=== PATIENT | female | born 1970 | race Caucasian/White ===

== ENCOUNTER 2018-03-02 08:21 | Observation (INO) ==
[2018-03-02] MEDS ORDERED: Chlorhexidine Gluconate 2% 1 Pack (2 Cloths) TOPICAL ONE (09:01)
[2018-03-02] MEDS ORDERED: Metoprolol Tartrate 25 MG Tablet PO ONE (09:01)
[2018-03-02] MEDS ORDERED: ceFAZolin 2 GM Premix Inj 2 GM/50 ML PIGGYBACK IV.SIG ONE (09:13)
[2018-03-02] MEDS ORDERED: ceFAZolin 2 GM/NS 100 ML IV IV.SIG SCH ×2 (10:00)
[2018-03-02] MEDS ORDERED: Sodium Chlor 0.9% Inj 500 ML IV.SIG SCH (10:00)
[2018-03-02] MEDS ORDERED: Morphine Sulfate Inj 2 MG/ML Vial IV.PUSH PRN ×2 (12:13→12:52)
[2018-03-02] MEDS ORDERED: Gelatin 12 MM/7 MM Topical Foam I-ARTERIAL ONE (12:21)
[2018-03-02] MEDS ORDERED: fentaNYL Citrate Inj 100 MCG/2 ML Ampul ONE (12:24)
[2018-03-02] MEDS ORDERED: fentaNYL Citrate Inj 250 MCG/5 ML Ampul ONE (12:54)
[2018-03-02 13:08] LABS: Baso # (Auto) 0.1 th/mm3 (0.0-0.2); Baso % (Auto) 0.5 % (0.0-2.0); Eos % (Auto) 0.3 % (0.0-4.0); Hematocrit 35.4 % (35.0-46.0); Hemoglobin 12.2 gm/dL (11.6-15.3); Lymph # (Auto) 0.7 th/mm3 (1.0-4.8); Lymph % (Auto) 5.4 % (9.0-44.0); Mean Corpuscular HGB Conc 34.3 % (32.0-36.0); Mean Corpuscular Hemoglobin 31.9 pg (27.0-34.0); Mean Corpuscular Volume 92.9 fL (80.0-100.0); Mean Platelet Volume 7.7 fL (7.0-11.0); Mono # (Auto) 0.3 th/mm3 (0.0-0.9); Mono % (Auto) 2.3 % (0.0-8.0); Neut # (Auto) 11.5 th/mm3 (1.8-7.7); Neut % (Auto) 91.5 % (16.0-70.0); Platelet Count 283 th/mm3 (150-450); Red Blood Count 3.82 mil/mm3 (4.00-5.30); Red Cell Distribution Width 13.3 % (11.6-17.2); White Blood Count 12.6 th/mm3 (4.0-11.0)
[2018-03-02 13:28] LABS: Calcium 8.1 mg/dL (8.5-10.1); Carbon Dioxide 24.7 meq/L (21.0-32.0)
[2018-03-02 13:29] LABS: Potassium 5.7 meq/L (3.5-5.1)
--- NOTE | 2018-03-02 14:29 | MP ---
cc: Glenn Genao MD DATE OF OPERATION: 03/01/2018 DATE OF PROCEDURE: 03/02/2018. PREOPERATIVE DIAGNOSIS: The patient with acute menometrorrhagia with submucous myoma, uterine fibroids and anemia. PROCEDURE PERFORMED: Exam under anesthesia, operative hysteroscopy, MyoSure myometrial resection, dilatation and curettage. POSTOPERATIVE DIAGNOSES: The patient with acute menometrorrhagia with submucous myoma, uterine fibroids and anemia. SURGEON: Glenn Genao MD ANESTHESIA: General with LMA. ESTIMATED BLOOD LOSS: Greater than 100 mL OPERATIVE FINDINGS: The patient had a 3 cm posterior submucous myoma with enlarged uterine cavity; vascular pedicle of the myoma was identified. No other abnormality was evident within the endometrial cavity. INDICATIONS FOR PROCEDURE: The patient with known history of uterine fibroids; had been doing well until recently had an episode of heavy menstrual bleeding that was off schedule from her use of her control pills. A recent ultrasound revealed an approximately 3 cm submucous myoma. Patient was elected for hysteroscopy with MyoSure and endometrial ablation. The patient received Ancef 2 grams prophylactically. PROCEDURE DESCRIPTION: The patient was taken to the operating room in stable condition and underwent general anesthesia with LMA placement. She was carefully positioned in dorsal lithotomy position using candy cane stirrups. She had sequentials placed on lower extremities for DVT prophylaxis. She was prepped and draped. Timeout was conducted and agreed by all present in the room. The examination of the patient's anatomy. The patient had a small midline cervix that was flush with the vaginal vault. There was no focal lesion noted. The cervix was secured with a single-tooth tenaculum and the uterine sound was placed gently in a slightly mid position to about 10 cm. The cervix was then dilated and a 5 mm hysteroscope was used to examine the cavity and the cavity revealed the findings as stated above; a midline submucous myoma with its base protruding from the posterior wall of the uterus. No other abnormality was evident. The MyoSure device was set up and initiation of resection resulted in part resection of the myoma, which was complicated by excessive blood loss and excessive bleeding, which obscured accurate visualization of the endometrial cavity. Completion of the MyoSure was terminated due to inability to visualize. Attempt at use of the NovaSure device was used to control the bleeding. The NovaSure was not successful in its utilization, due to cavity assessment would not complete its cycle. Re-examination hysteroscopically revealed less active bleeding. Any tissue fragments and removed tissue was sent in formalin. At that point, concerns for active hemorrhage with inability to control it endoscopically were noted and a decision was to terminate the procedure and proceed with interventional radiology for a uterine artery embolization. The endometrial cavity was cleared and then a 4 x 4 piece of Ethicon SNoW as a hemostatic agent was placed with the packing forceps into the endometrial cavity to help control any active bleeding in transit to interventional radiology. At the completion of the case, there was a small posterior laceration of the cervix, which was sutured easily with simple interrupted 2-0 Vicryl suture. Again, observation revealed no active bleeding at the completion of the case and the final count was correct. DISPOSITION: The patient was then taken to the recovery room, extubated on room air. MD LUKAS Suresh/sonya , 01:55 PM , 02:03 PM
--- NOTE | 2018-03-02 17:22 | P.PNOB ---
Assessment and Plan - Postoperative Procedures Operation Date: 03/02/18 10:44 Actual Procedures Side Surgeon p D&C, HYSTEROSCOPY, NOVASURE ENDOMETRIAL ABLATION, POLYPECTOMY, MYOSURE Glenn Genao MD IR ,left uterine artery embolization Postoperative day: 0 Postoperative status: doing well Postoperative plan: routine post-op care - Time Spent With Patient Total time spent is greater than 50% in coordination of care (as documented) at patient's floor/unit and/or counseling patient: Subjective Interval history: Patient s/p emergent uterine artery embolization, ROSALBA. No active bleeding,pain, fever.Patient UAE was done through left radial art. ,no groin wound site. Feels good,desires to go home. Subjective: patient reports feeling better, patient has no complaints, patient desires discharge, pain is well controlled, patient is tolerating oral intake Physical Exam Vital signs: Temp Pulse Resp BP Pulse Ox 97.9 F 72 20 132/88 99 03/02/18 15:05 03/02/18 15:50 03/02/18 15:50 03/02/18 15:50 03/02/18 09:24 - Constitutional no acute distress - Routine Respiratory Exam Absent: accessory muscle use - Routine Cardiovascular Exam Absent: tachycardia - Routine Abdominal Exam Present: soft. Absent: tenderness, distended, rebound, guarding - Routine Exam Patient deferred: groin exam - Routine Extremities Exam Present: full ROM. Absent: cyanosis, clubbing, edema - Routine Skin Exam Present: intact. Absent: erythema, petechiae - Routine Neurological Exam Present: oriented X3 Results - Labs CBC & Chem 7: 03/02/18 12:50 03/02/18 12:50 Labs: Laboratory Results - last 24 hr 03/02/18 03/02/18 12:50 12:50 WBC 12.6 H RBC 3.82 L Hgb 12.2 Hct 35.4 MCV 92.9 MCH 31.9 MCHC 34.3 RDW 13.3 Plt Count 283 MPV 7.7 Neut % (Auto) 91.5 H Lymph % (Auto) 5.4 L [place] % (Auto) 2.3 Eos % (Auto) 0.3 Baso % (Auto) 0.5 Neut # (Auto) 11.5 H Lymph # (Auto) 0.7 L [place] # (Auto) 0.3 Eos # (Auto) 0.0 Baso # (Auto) 0.1 WBC Differential . Differential Comment Auto diff final Sodium 137 Potassium 5.7 H Chloride 105 Carbon Dioxide 24.7 Anion Gap 7 BUN 8 Creatinine 0.86 Estimated GFR 70 L Random Glucose 92 Calcium 8.1 L Progress Note: Quality - AMI Clinical Trial Participant: No - VTE Deep Vein Thrombosis/Pulmonary Embolism Present on Admission: No
[2018-03-02] MEDS ORDERED: Glycopyrrolate Inj 1 MG/5 ML Syringe IV.PUSH ONE (17:35)
[2018-03-02] MEDS ORDERED: Lidocaine PF 1% Inj 5 ML Syringe OTHER ONE (17:35)
--- NOTE | 2018-03-03 07:52 | IR ---
EXAM DATE: 03/02/2018 3:41 PM EDT AGE/SEX: 47 years / Female INDICATIONS: History of endometrial mass with postoperative hemorrhage. Urgent angiography with poss ible uterine artery embolization has been requested. CLINICAL DATA: This is the patient's initial encounter. Patient reports that signs and symptoms have been present for 1 day and indicates a pain score of 5/10. MEDICAL/SURGICAL HISTORY: None. None. COMPARISON: No prior exams available for comparison. FLUORO TIME (min): 7.8 IMAGE SERIES: 12 ACCESS SITE: Left radial artery SEDATION TIME (min): 50 CONTRAST (cc): 110 Visipaque (iodixanol) MEDICATION(S): 2 mg midazolam (Versed) IV ; 100 mcg fentanyl (Sublimaze) IV ; ; ; DEVICE(S): Left uterine artery Gelfoam 1 packet ; Left radial artery Radial Arm Band 24cm Prelude Sync ; ; ; ; ; . . PROCEDURE : 1. Ultrasound-guided puncture of the left radial artery. 2. Conscious sedation with continuous EKG and Oximetry monitoring. 3. Pelvic angiogram 4. Selective catheter placement in the left internal iliac artery with selective angiography 5. Gelfoam embolization of anterior branch of the left internal iliac artery 6. Selective catheter placement in the right internal iliac artery with selective angiography 7. Subselective catheter placement in an anterior branch of the right internal iliac artery The risks, benefits and alternatives to the procedure were explained and verbal and written consent w as obtained. The site was prepped in sterile fashion. Full sterile technique was used, including ca p, mask, sterile gloves and gown and a large sterile sheet. Hand hygiene and 2% chlorhexidine and/or betadine/alcohol prep was utilized per protocol for cutaneous antisepsis. Sterile gel and sterile p robe cover were utilized for ultrasound guidance. The skin and subcutaneous tissues were infiltrated with local anesthetic solution. With ultrasound and fluoroscopic guidance the left radial artery was punctured and a vascular sheath was placed. 4 [place] catheter was then advanced into the left internal iliac artery and angiography w as performed. This didn't demonstrate abnormal enhancement in a configuration consistent with abnorma l uterine enhancement. The anterior branch supplying this region was then subselected and angiography performed confirming the findings. This branch was subsequently embolized with Gelfoam slurry to doyle r stasis. Follow-up angiography demonstrated no evidence of abnormal enhancement or contrast extravas ation. Subsequently, catheter was repositioned into the right internal iliac artery and angiography w as performed. This did not demonstrate any abnormal enhancement or extravasation. Several anterior br anches were then subselected and angiography performed again without abnormal enhancement or contrast extravasation. Catheter was therefore retracted to the distal aorta and pelvic angiogram was perform ed. This does not demonstrate any further abnormal enhancement or contrast extravasation the pelvis. Wires and catheters were therefore removed. The puncture site was closed with manual pressure and hemostasis was obtained. The patient tolerated the procedure well and there were no complications. Conscious sedation was performed with the prescribed dosages and duration as above in the presence of an independent trained radiology nurse to assist in the monitoring of the patient. EKG and oximetry remained stable throughout the procedure. CONCLUSION: 1. No angiographic evidence for active hemorrhage in the pelvis. 2. Suspected abnormal uterine enhancement supplied by the left uterine artery. This was embolized wi th Gelfoam. 3. A definitive right uterine artery could not be identified. Given patient's now relatively hemodyn amic stability, nonselective internal iliac Gelfoam embolization was not performed. Electronically signed by: Mendoza Corley MD 03/03/2018 7:51 AM EDT
== END 2018-03-02 17:36 | disposition home or self-care (01) ==
LOC: HSDC 08:21 → HSDI 08:21 → H1EA 16:58
PROVIDERS: ADMIT Obstetrics & Gynecology; ATTEND Obstetrics & Gynecology